=== PATIENT | female | born 1955 | race Two or more races ===

== ENCOUNTER 2019-11-06 18:13 | Emergency (ER) | payer MEDICAID ==
[~2019-11-06] VITALS: Ht 172.7 cm; Wt 89.8 kg
[2019-11-06 18:16] VITALS: BP 133/79
[2019-11-06] MEDS ORDERED: Tylenol #3 tab (300mg/30mg) ORAL ONE (18:30)
--- NOTE | 2019-11-06 19:01 | Diagnostic Imaging Report ---
EXAM: CT Head Without Intravenous Contrast CLINICAL HISTORY: SYNCOPE TECHNIQUE: Axial computed tomography images of the head/brain without intravenous contrast. CTDI is 53.4 mGy and DLP is 1072.2 mGy-cm. One or more of the following dose reduction techniques were used: automated exposure control, adjustment of the mA and/or kV according to patient size, use of iterative reconstruction technique. COMPARISON: None. FINDINGS: Brain: No abnormal extra-axial collection. No hemorrhage. Midline shift: No midline shift or mass-effect. Ventricles: The ventricular system is unremarkable. Bones/joints: Calvarium is unremarkable. No acute fracture. Soft tissues: Unremarkable. Sinuses: Visualized sinuses are unremarkable. Mastoid air cells: Mastoid air cells are well pneumatized. IMPRESSION: No acute intracranial pathology is detected. If there is concern for etiology such as early acute lacunar infarcts, magnetic resonance imaging of the brain with diffusion-weighted sequences should be performed for follow-up
--- NOTE | 2019-11-06 19:08 | Diagnostic Imaging Report ---
EXAM: XR Left Hand Complete, 3 or More Views CLINICAL HISTORY: FALL TECHNIQUE: Frontal, lateral and oblique views of the left hand. COMPARISON: None. FINDINGS: Bones/joints: Acute comminuted displaced fracture of the distal left radius is noted. Acute fracture of the ulnar styloid. Mild osteoarthritic changes of the DIP and PIP joints. The carpal bones are unremarkable. No dislocation. Soft tissues: Unremarkable. No radiopaque foreign body. IMPRESSION: Extensive acute comminuted displaced fracture of the distal left radius. Fracture of the ulnar styloid.
--- NOTE | 2019-11-06 19:09 | Diagnostic Imaging Report ---
EXAM: XR Left Wrist, 2 Views CLINICAL HISTORY: FALL TECHNIQUE: Frontal and lateral views of the left wrist. COMPARISON: None. FINDINGS: Bones/joints: Acute comminuted fracture of the distal left radius is noted. There is downward displacement of the distal fracture fragment. Acute fracture of the ulnar styloid. The carpal bones are unremarkable. No dislocation. Soft tissues: Extensive soft tissue swelling around the left wrist joint. No radiopaque foreign body. IMPRESSION: Extensive acute comminuted displaced fracture of the distal left radius. Fracture of the ulnar styloid. Extensive soft tissue swelling about the left wrist joint. The fracture extends to the left wrist joint.
--- NOTE | 2019-11-06 19:11 | Diagnostic Imaging Report ---
EXAM: XR Chest, 1 View CLINICAL HISTORY: SOB TECHNIQUE: Frontal view of the chest. COMPARISON: None. FINDINGS: Lungs: No consolidative change. The heart is normal in size. Pleural space: No pneumothorax. No pleural effusion. Heart: Unremarkable. No cardiomegaly. Mediastinum: Unremarkable. Bones/joints: There is osteopenia. The ribs are grossly unremarkable. The clavicles are unremarkable. Post surgical changes about the right shoulder joint partially visualized. Other findings: There is mild hypoaeration. IMPRESSION: Osteopenia. No active disease.
[2019-11-06 19:29] LABS: BASOPHILS % (AUTO) 1.1 % (0.0-2.0); HEMATOCRIT 43.3 % (37.0-47.0); HEMOGLOBIN 14.4 G/DL (12.0-16.0); LYMPHOCYTES % (AUTO) 20.3 % (20.0-45.0); MEAN CORPUSCULAR VOLUME 87 FL (80-99); MONOCYTES % (AUTO) 6.8 % (1.0-10.0); NEUTROPHILS % (AUTO) 70.8 % (45.0-75.0); PLATELET COUNT 190 K/UL (150-450); RED BLOOD COUNT 4.97 M/UL (4.20-5.40); RED CELL DISTRIBUTION WIDTH 13.6 % (11.6-14.8); WHITE BLOOD COUNT 10.7 K/UL (4.8-10.8)
[2019-11-06 19:43] LABS: ANION GAP 12 mmol/L (5-15); BLOOD UREA NITROGEN 19 mg/dL (7-18); CALCIUM 9.3 MG/DL (8.5-10.1); CARBON DIOXIDE 27 MMOL/L (21-32); CHLORIDE 103 MMOL/L (98-107); CREATININE 0.9 MG/DL (0.55-1.30); POTASSIUM 3.8 MMOL/L (3.5-5.1); SODIUM 142 MMOL/L (136-145)
[2019-11-06 19:45] VITALS: BP 120/64
[2019-11-06 19:55] LABS: ALANINE AMINOTRANSFERASE 37 U/L (12-78); ALKALINE PHOSPHATASE 131 U/L (46-116); ASPARTATE AMINO TRANSFERASE 24 U/L (15-37); BILIRUBIN,TOTAL 0.8 MG/DL (0.2-1.0)
--- NOTE | 2019-11-06 20:10 | Emergency Room Report ---
History of Present Illness General Chief Complaint: Syncope Source: Patient (Edin Treadwell) Present Illness HPI 63-year-old female with history of hypothyroidism, hyperlipidemia, and hypertension currently controlled here complaining of left wrist pain after fall earlier today. Patient reported she had a syncopal episode but she has been experiencing a lot in the past year. Patient did not hit her head and reports that he caught her before falling. Denies any chest pain, shortness of breath, palpitation, headache and dizziness at this time. Denies any history of diabetes, abdominal pain, nausea vomiting, fever and chills, and other URI symptoms. Obvious deformity of left wrist noted. Note patient denies any tingling numbness. Neurovascularly intact (Edin Treadwell) Allergies: Coded Allergies: No Known Allergies (Unverified , 11/06/19) Patient History Past Medical History: see triage record Past Surgical History: none Pertinent Family History: none Now: No Immunizations: UTD Reviewed Nursing Documentation: PMH: Agreed; PSxH: Agreed (Edin Treadwell) Nursing Documentation-PMH Hx Hypertension: Yes Hx Diabetes: No - hypothiroid (Edin Treadwell) Review of Systems All Other Systems: negative except mentioned in HPI (Edin Treadwell) Physical Exam Vital Signs Date Time Temp Pulse Resp B/P (MAP) Pulse Ox O2 Delivery O2 Flow Rate FiO2 11/06/19 18:16 98.2 68 18 133/79 97 Room Air Sp02 EP Interpretation: reviewed, normal General Appearance: no apparent distress, alert, GCS 15, non-toxic Head: normocephalic, atraumatic Eyes: bilateral eye normal inspection, bilateral eye PERRL ENT: hearing grossly normal, normal pharynx, no angioedema, normal voice Neck: full range of motion, no meningismus, supple/symm/no masses Respiratory: chest non-tender, lungs clear, normal breath sounds, no rhonchi, no respiratory distress, no retraction, speaking full sentences Cardiovascular #1: regular rate, rhythm, no edema, no murmur Cardiovascular #2: 2+ carotid (R), 2+ carotid (L), 2+ radial (R), 2+ radial (L) Gastrointestinal: normal bowel sounds, non tender, soft, non-distended, no guarding, no rebound Rectal: deferred Genitourinary: no CVA tenderness Musculoskeletal: back normal, no calf tenderness, gait/station normal, tender - Left radial head and ulnar styloid process with obvious deformity Neurologic: alert, motor strength/tone normal, oriented, oriented x3, sensory intact, cerebellar normal, responsive, speech normal Psychiatric: judgement/insight normal, memory normal, mood/affect normal, no suicidal/homicidal ideation Skin: no rash Lymphatic: no adenopathy (Edin Treadwell) Procedures Splinting Splinting : Consent: Verbal Location: Left wrist Splint: wrist Pre-Proc Neuro Vasc Exam: normal Post-Proc Neuro Vasc Exam: normal Patient Tolerated: Well Complications: None Progress Arm sling applied (Edin Treadwell) Medical Decision Making PA Attestation All diagnoses and treatment plans were reviewed and discussed with my supervising physician Dr. Mendoza (Edin Treadwell) Diagnostic Impression: Primary Impression: Syncope Qualified Codes: R55 - Syncope and collapse Additional Impressions: Displaced fracture of head of left radius Qualified Codes: S52.122A - Displaced fracture of head of left radius, initial encounter for closed fracture Fracture of styloid process of left ulna Qualified Codes: S52.615A - Nondisplaced fracture of left ulna styloid process , initial encounter for closed fracture ER Course 63-year-old female with history of hypothyroidism, hyperlipidemia, and hypertension currently controlled here complaining of left wrist pain after fall earlier today. Patient reported she had a syncopal episode but she has been experiencing a lot in the past year. Patient did not hit her head and reports that he caught her before falling. Denies any chest pain, shortness of breath, palpitation, headache and dizziness at this time. Denies any history of diabetes, abdominal pain, nausea vomiting, fever and chills, and other URI symptoms. Obvious deformity of left wrist noted. Note patient denies any tingling numbness. Neurovascularly intact Ddx considered but are not limited to: Dizziness due to alcohol intoxication, dizziness unspecified, dizziness due to head trauma, dizziness secondary to cardiac reasons Wrist fracture versus sprain versus strain versus contusion Vital signs: are WNL, pt. is afebrile H&PE are most consistent with: Syncope unspecified, displaced fracture of left radial head, fracture of styloid process of left ulna ORDERS: Syncope order set, left wrist x-ray pre-and post reduction, [place], ibuprofen ER intervention: NS bolus, Tylenol 3, could not use any sedation due to patient age, syncopal episode, and low heart rate DISCHARGE: At this time pt. is stable for d/c to home. Will provide printed patient care instructions, and any necessary prescriptions. Care plan and follow up instructions have been discussed with the patient prior to discharge. Patient to follow with learning disabilities specialist for surgery on the left wrist, also advised patient to have primary doctor sent her to business services sales representative as well as doing a MRI of her head due to prolonged syncopal episodes. At this time we cannot find any acute causes. Patient agrees to follow-up with primary care doctor. Also report that there has been no change of the dosing of her medication. Denies any drug use or tobacco smoke (Edin Treadwell) EKG Diagnostic Results Rate: normal Rhythm: NSR ST Segments: no acute changes Other Impression no acute ST changes (Edin Treadwell) Chest X-Ray Diagnostic Results Chest X-Ray Diagnostic Results : Chest X-Ray Ordered: Yes # of Views/Limited/Complete: 1 View Indication: Other - syncope PA Xray: Interpretation reviewed, by supervising MD, and agrees with findings. Interpretation: no consolidation, no effusion, no pneumothorax Impression: No acute disease Electronically Signed by: Edin Gr PA-C (Edin Treadwell) Chest X-Ray Diagnostic Results : Electronically Signed by: Petra Power documentation of Xray reviewed by me and is accurate, Mani Mendoza MD (Mani Mendoza MD) Other X-Ray Diagnostic Results Other X-Ray Diagnostic Results #1: X-Ray ordered: Left wrist x-ray prereduction # of Views/Limited Vs Complete: 3 View Indication: Pain EP Interpretation: Yes PA Xray: Interpretation reviewed, by supervising MD, and agrees with findings. Interpretation: other - Displaced fracture of left radial head, nondisplaced fracture of left styloid process on ulnar side Impression: Other - wrist fx Electronically Signed by: Edin Gr PA-C Other X-Ray Diagnostic Results #2: X-Ray ordered: Left wrist x-ray post reduction # of Views/Limited Vs Complete: 2 View Indication: Pain EP Interpretation: Yes PA Xray: Interpretation reviewed, by supervising MD, and agrees with findings. Interpretation: no soft tissue swelling, other - Partially placed back in still fractured Impression: Other - wrist fx Electronically Signed by: Edin Gr PA-C (Edin Treadwell) Other X-Ray Diagnostic Results #1: Electronically Signed by: P A documentation of Xray reviewed by me and is accurate, Mani Mendoza MD Other X-Ray Diagnostic Results #2: Electronically Signed by: P A documentation of Xray reviewed by me and is accurate, Mani Mendoza MD (Mani Mendoza MD) CT/MRI/US Diagnostic Results CT/MRI/US Diagnostic Results : Imaging Test Ordered: Head CT no contrast Impression No acute finding (Edin Treadwell) Last Vital Signs Date Time Temp Pulse Resp B/P (MAP) Pulse Ox O2 Delivery O2 Flow Rate FiO2 11/06/19 19:45 98.3 66 18 120/64 98 Room Air Status: improved (Edin Treadwell) Disposition: HOME, SELF-CARE Condition: Stable Scripts Ibuprofen* (MOTRIN*) 600 Mg Tablet 600 MG ORAL Q6H PRN for For Pain, #30 TAB Prov: Edin Treadwell 11/06/19 Hydrocodone Bit/Acetaminophen 5-325* (NORCO 5-325*) 1 Each Tablet 1 TAB ORAL Q6H PRN for For Pain for 4 Days, #15 TAB 0 Refills Prov: Edin Treadwell 11/06/19 Referrals: NON PHYSICIAN (PCP) Patient Instructions: Syncope, Wrist Fracture With [facility] Additional Instructions: Follow-up with primary care provider for referral to learning disabilities specialist and surgery of the left wrist, also have your primary doctor do MRI brain and further testing possible referral to business services sales representative and further work-up for your continuous dizziness for the past several months. At this time we did not find anything acute that could be the cause of your dizziness and passing out. If worsening symptoms return to the emergency room Edin Treadwell Nov 06, 2019 20:10 Mani Mendoza MD Nov 09, 2019 04:57
[2019-11-06] MEDS ORDERED: IBUPROFEN600 MG ORAL (20:11)
[2019-11-06] MEDS ORDERED: NORCO 5-325 TA1 EACH ORAL (20:11)
--- NOTE | 2019-11-06 20:25 | Diagnostic Imaging Report ---
EXAM: XR Left Wrist, 2 Views CLINICAL HISTORY: PAIN TECHNIQUE: Frontal and lateral views of the left wrist. COMPARISON: Earlier plain film evaluation of the left wrist joint performed today. FINDINGS: Limitations: A cast is noted in place which somewhat limits evaluation. Bones/joints: Acute comminuted fracture of the distal left radius with minimal displacement is again noted, unchanged. Fracture of the ulnar styloid is again noted, unchanged. No dislocation. Soft tissues: Unremarkable. No radiopaque foreign body. IMPRESSION: A cast is now noted in place. No significant change in the appearance of fractures of the distal left radius and ulna since the earlier study.
[2019-11-06 20:30] VITALS: BP 122/65
== END 2019-11-06 20:30 | disposition home or self-care (01) ==
LOC: EMR 18:50
DX: S52.122A Displaced fracture of head of left radius, initial encounter for closed fracture (principal); S52.615A Nondisplaced fracture of left ulna styloid process, initial encounter for closed fracture; R55 Syncope and collapse; E03.9 Hypothyroidism, unspecified; E78.5 Hyperlipidemia, unspecified; I10 Essential (primary) hypertension; W19.XXXA Unspecified fall, initial encounter
CPT/HCPCS: 29125; 36415; 70450; 71045; 73110; 73120; 80053; 83880; 84484; 85025; 85610; 85730; 93005; Z7502; 99284